=== PATIENT | female | born 1960 | race Caucasian/White ===

== ENCOUNTER 2022-06-13 08:48 | Outpatient (CLI) | payer BC, SELFPAY ==
[2022-06-13 13:20] LABS: Chloride* 106 mmol/L (96-114); Potassium* 4.8 mmol/L (3.6-5.1); Sodium* 140 mmol/L (135-149)
[2022-06-13 13:23] LABS: Blood Urea Nitrogen* 16 mg/dL (7-30); Carbon Dioxide* 27 mmol/L (20-32); Cholesterol* 187 mg/dL (90-199); Creatinine* 0.8 mg/dL (0.5-1.5); Estimated Glomerular Filt Rate 85 ml/min; Glucose* 96 mg/dL (60-115); Triglycerides* 85 mg/dL (40-149)
[2022-06-13 13:24] LABS: Calcium* 9.5 mg/dL (8.4-10.6); HDL Cholesterol* 64 mg/dL (>=50); LDL Cholesterol Calculated 106 mg/dL (<100)
== END 2022-06-13 08:49 | disposition home or self-care (01) ==
PROVIDERS: PCP Family Medicine; Visit Provider Family Medicine
DX: E78.5 Hyperlipidemia, unspecified (principal); Z13.1 Encounter for screening for diabetes mellitus
CPT/HCPCS: 80048; 80061; 87624; 88175

== ENCOUNTER 2022-08-18 08:05 | Outpatient (CLI) | payer BC, SELFPAY ==
--- NOTE | 2022-08-18 08:15 | CRLHL7_ITS ---
For Patients: As a result of the Century Cures Act, medical imaging exams and procedure reports are released immediately into your electronic medical record. You may view this report before your referring provider. If you have questions, please contact your health care provider. BILATERAL SCREENING MAMMOGRAM WITH COMPUTER-AIDED DETECTION AND TOMOSYNTHESIS TECHNIQUE: CC and MLO views were obtained. These mammographic images have been obtained using full-field digital technique. These mammographic images were interpreted with the benefit of computer-aided detection. Breast Tomosynthesis was used in this interpretation. COMPARISON FILM: 06/28/21, 10/22/19, 09/17/18. FINDINGS: There are scattered areas of fibroglandular density IMPRESSION: There is no radiographic evidence for malignancy. ASSESSMENT: BI-RADS Category 1: Negative RECOMMENDATION: Routine screening mammogram in 1 year. A lay language report of this examination will be provided to the patient. Gonzales Cotto M.D. Diagnostic Radiologist [email or web address] [email or web address] be/Dictated by: Gonzales Cotto MD @ 08/18/2022 10:12:00 AM (Electronically Signed)
== END 2022-08-18 08:06 | disposition home or self-care (01) ==
PROVIDERS: PCP Family Medicine; Visit Provider Family Medicine
DX: Z12.31 Encounter for screening mammogram for malignant neoplasm of breast (principal)
CPT/HCPCS: 77063; 77067

== ENCOUNTER 2023-07-06 08:01 | Outpatient (CLI) | payer BC, SELFPAY | END 2023-07-06 08:02 | disposition home or self-care (01) | PROVIDERS: PCP Family Medicine; Visit Provider Family Medicine | DX: Z00.00 Encounter for general adult medical examination without abnormal findings (principal); E78.5 Hyperlipidemia, unspecified; L65.9 Nonscarring hair loss, unspecified; Z13.1 Encounter for screening for diabetes mellitus; Z13.29 Encounter for screening for other suspected endocrine disorder | CPT/HCPCS: 80048; 80061; 84439 ==

== ENCOUNTER 2023-12-20 09:07 | Outpatient (CLI) | payer BC, SELFPAY | END 2023-12-20 09:08 | disposition home or self-care (01) | LOC: LKVREF 09:09 | PROVIDERS: PCP Family Medicine; Visit Provider Family Medicine | DX: E66.9 Obesity, unspecified (principal); Z13.228 Encounter for screening for other metabolic disorders | CPT/HCPCS: 80048 ==

== ENCOUNTER 2024-02-13 08:45 | Outpatient (CLI) | payer BC, SELFPAY ==
--- NOTE | 2024-02-13 09:15 | CRLHL7_ITS ---
For Patients: As a result of the Century Cures Act, medical imaging exams and procedure reports are released immediately into your electronic medical record. You may view this report before your referring provider. If you have questions, please contact your health care provider. BILATERAL SCREENING MAMMOGRAM WITH COMPUTER-AIDED DETECTION AND TOMOSYNTHESIS TECHNIQUE: CC and MLO views were obtained. These mammographic images have been obtained using full-field digital technique. These mammographic images were interpreted with the benefit of computer-aided detection. Breast Tomosynthesis was used in this interpretation. COMPARISON FILM: 08/18/22, 06/28/21, 10/22/19. FINDINGS: There are scattered areas of fibroglandular density. IMPRESSION: There is no radiographic evidence for malignancy. ASSESSMENT: BI-RADS Category 1: Negative RECOMMENDATION: Routine screening mammogram in 1 year. A lay language report of this examination will be provided to the patient. Gonzales Cotto M.D. Diagnostic Radiologist [email or web address] SP/Dictated by: Gonzales Cotto MD @ 02/13/2024 10:21:00 AM (Electronically Signed)
== END 2024-02-13 08:46 | disposition home or self-care (01) ==
LOC: MAMMO 08:46
PROVIDERS: PCP Family Medicine; Visit Provider Family Medicine
DX: Z12.31 Encounter for screening mammogram for malignant neoplasm of breast (principal)
CPT/HCPCS: 77063; 77067

== ENCOUNTER 2024-10-02 11:14 | Outpatient (CLI) | payer BC, SELFPAY | END 2024-10-02 11:15 | disposition home or self-care (01) | PROVIDERS: PCP Family Medicine; Visit Provider Family Medicine | DX: E78.00 Pure hypercholesterolemia, unspecified (principal); Z13.1 Encounter for screening for diabetes mellitus | CPT/HCPCS: 80048; 80061 ==